=== PATIENT | male | born 1930 | race Hispanic/Latino ===

== ENCOUNTER 2016-10-24 14:47 | Outpatient (RCR) | payer OTHER ==
--- OUTSIDE RECORDS SUMMARY | 2016-10-24 14:50 | XMS REPORT ---
Author Author GRIS ELDER [facility] eClinicalWorks Address Unknown Phone Unavailable Care Team Providers Care Lead Network Engineer Name Role Phone GRIS ELDER CP Unavailable Allergies, Adverse Reactions, Alerts Substance Reaction Event Type N.K.D.A. 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 Active Assessment Essential hypertension I10 Active Problem Essential hypertension I10 Active Problem Prostate cancer C61 Active Medications Medication Code System Code Instructions Start Date End Date Status Dosage Zantac [facility] [address]-06 150 MG Orally twice a day Jul 26, 2016 1 tablet at bedtime Elimarkd [facility] [address]-48 22.5 MG Subcutaneous not defined Metformin HCl [facility] [address]-59 500 MG Orally Twice a day 1 tablet with meals Bicalutamide [facility] [address]-98 50 mg Orally Once a day 1 tablet Amlodipine Besylate [facility] [address]-87 10 mg Orally Once a day Jun 28, 2016 1 tablet Finasteride [facility] [address]-88 5 MG Orally Once a day 1 tablet VESIcare [facility] [address]-37 10 MG Orally Once a day 1 tablet Gabapentin [facility] [address]-39 100 MG Orally 3 times a day Jul 26, 2016 1 tablet Procedures Procedure Coding System Code Date Office Visit, Est Pt., Level 4 CPT-4 87097 Sep 11, 2016 ELECTROCARDIOGRAM, TRACING CPT-4 94071 Sep 11, 2016 GLUCOSE BLOOD TEST CPT-4 78070 Sep 11, 2016 Vital Signs Date/Time: Sep 11, 2016 Cardiac Monitoring Heart Rate 62 bpm Weight 140.0 lbs Height 61 in BMI 26.45 Index Blood Pressure Diastolic 88 mmHg Blood Pressure Systolic 130 mmHg Results Name Result Date Reference Range Unit Abnormality Flag GLUCOSE FINGERSTICK (IN HOUSE) ----GLU FINGERSTICK 133 [id number] ----PC 5 HR [id number] ----Lot # [id number] ----Exp date 20160911 Summary Purpose eClinicalWorks Submission
[2016-10-24 15:12] LABS: BASOPHILS # (AUTO) 0.1 10^3/uL (0.0-0.1); BASOPHILS % (AUTO) 1 % (0-10); EOSINOPHILS # (AUTO) 0.2 10^3/uL (0.0-0.3); EOSINOPHILS % (AUTO) 3 % (0-10); LYMPHOCYTES # (AUTO) 2.3 X 10^3 (1.0-4.0); LYMPHOCYTES % (AUTO) 33 % (12-44); MEAN CORPUSCULAR HEMOGLOBIN 31 PG (25-34); MEAN CORPUSCULAR HGB CONC 35 G/DL (32-36); MEAN CORPUSCULAR VOLUME 88 FL (80-99); MEAN PLATELET VOLUME 9.9 FL (7.4-10.4); MONOCYTES # (AUTO) 0.5 X 10^3 (0.0-1.0); MONOCYTES % (AUTO) 8 % (0-12); NEUTROPHILS # (AUTO) 3.9 X 10^3 (1.8-7.8); NEUTROPHILS % (AUTO) 56 % (42-75); PLATELET COUNT 212 10^3/uL (130-400); RED BLOOD COUNT 4.87 10^6/uL (4.35-5.85); RED CELL DISTRIBUTION WIDTH 13.3 % (10.0-14.5)
[2016-10-24] MEDS ORDERED: LEUPROLIDE 22.5 MG SYRIN(ELIGARD) SQ SCH (15:15)
[2016-10-24 15:43] LABS: BILIRUBIN,TOTAL 0.6 MG/DL (0.1-1.0); CALCIUM 9.3 MG/DL (8.5-10.1); CREATININE SERUM 1.34 MG/DL (0.60-1.30); POTASSIUM 4.5 MMOL/L (3.6-5.0); TOTAL PROTEIN 7.5 G/DL (6.4-8.2)
== END 2017-01-22 | disposition home or self-care (01) ==
LOC: ONC 14:47
PROVIDERS: ATTEND Internal Medicine Hematology & Oncology
DX: C61 Malignant neoplasm of prostate (principal); C79.51 Secondary malignant neoplasm of bone; C78.01 Secondary malignant neoplasm of right lung; C78.02 Secondary malignant neoplasm of left lung; C77.2 Secondary and unspecified malignant neoplasm of intra-abdominal lymph nodes; R73.9 Hyperglycemia, unspecified; N39.45 Continuous leakage; I10 Essential (primary) hypertension; M19.90 Unspecified osteoarthritis, unspecified site; Z79.899 Other long term (current) drug therapy
CPT/HCPCS: 36415; 80053; 84153; 85025; 96402; 99213

== ENCOUNTER 2017-01-30 14:52 | Outpatient (RCR) | payer OTHER ==
--- OUTSIDE RECORDS SUMMARY | 2017-01-23 14:59 | XMS REPORT | Continuity of Care Document ---
Author Author [facility] Organization [facility] Address Unknown Phone Unavailable Care Team Providers Care Academic Affairs Vice President Name Role Phone PCP Unavailable Source Comments Some departments are not documenting in the electronic medical record. If you do not see the information that you expected, contact Release of Information in the Health Information Management department at [phone] for further assistance in locating additional records.[facility] Active Allergies and Adverse Reactions Not on File Current Medications Not on file Active Problems Not on file Social History Tobacco Use Types Packs/Day Years Used Date Never Assessed Plan of Care Date Type Specialty Providers Description 02/12/2017 Appointment Urology Beatrice Finnegan MD [address] [facility] [address] [place] [address] [phone] (Fax) Health Maintenance Due Date Last Done Comments Physical (Comprehensive) 1937 Exam Pertussis Vaccine 1941 Tetanus Vaccine 1947 Shingles Vaccine 1990 Prevnar/Pneumovax (#1) 1995 Influenza Vaccine 07/20/2016 Results from Last 3 Months Not on file
[2017-01-23 15:07] LABS: BASOPHILS # (AUTO) 0.1 10^3/uL (0.0-0.1); BASOPHILS % (AUTO) 1 % (0-10); EOSINOPHILS # (AUTO) 0.2 10^3/uL (0.0-0.3); EOSINOPHILS % (AUTO) 2 % (0-10); LYMPHOCYTES # (AUTO) 3.3 X 10^3 (1.0-4.0); LYMPHOCYTES % (AUTO) 42 % (12-44); MEAN CORPUSCULAR HEMOGLOBIN 30 PG (25-34); MEAN CORPUSCULAR HGB CONC 35 G/DL (32-36); MEAN CORPUSCULAR VOLUME 87 FL (80-99); MEAN PLATELET VOLUME 10.1 FL (7.4-10.4); MONOCYTES # (AUTO) 0.6 X 10^3 (0.0-1.0); MONOCYTES % (AUTO) 7 % (0-12); NEUTROPHILS # (AUTO) 3.8 X 10^3 (1.8-7.8); NEUTROPHILS % (AUTO) 48 % (42-75); PLATELET COUNT 194 10^3/uL (130-400); RED BLOOD COUNT 4.95 10^6/uL (4.35-5.85); RED CELL DISTRIBUTION WIDTH 12.7 % (10.0-14.5); WHITE BLOOD COUNT 7.9 10^3/uL (4.3-11.0)
[2017-01-23 15:31] LABS: ALBUMIN 4.1 G/DL (3.2-4.5); BILIRUBIN,TOTAL 0.5 MG/DL (0.1-1.0); CALCIUM 9.1 MG/DL (8.5-10.1); CREATININE SERUM 1.3 MG/DL (0.60-1.30); POTASSIUM 4.6 MMOL/L (3.6-5.0); TOTAL PROTEIN 7.7 G/DL (6.4-8.2)
--- NOTE | 2017-01-23 19:00 | Diagnostic Imaging Report ---
Pelvis and bilateral hips. INDICATION: Right hip pain. FINDINGS: A single AP view of the pelvis and AP and lateral views of both hips were obtained. There are no previous plain film examinations available for comparison. The bone scan performed on 04/27/2016 failed to show any abnormal uptake in the region of the right hip. On this study, there is no fracture, dislocation, or acute bony abnormality evident. 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 Furthermore, there is a 1.8 x 2.1 cm calcification in the soft tissues superior to the left femoral neck. This finding seems unchanged when compared to the CT abdomen/pelvis exam of 03/24/2016. 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 There is moderate sclerosis of the sacroiliac joint on the right and mild sclerosis on the left. 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 The soft tissues are unremarkable aside from extensive vascular calcifications. IMPRESSION: 1. There is no evidence for an acute bony abnormality. 2. If clinical concern regarding an underlying abnormality persists and further imaging is desired, then MRI will be recommended. Dictated by: Dictated on workstation # [id number]
[~2017-01-30 14:52] MED LIST: LEUPROLIDE 22.5 MG SYRIN(ELIGARD) SQ SCH
== END 2017-04-23 | disposition still patient (30) ==
LOC: ONC 14:52
PROVIDERS: ATTEND Internal Medicine Hematology & Oncology
DX: C61 Malignant neoplasm of prostate (principal); C79.51 Secondary malignant neoplasm of bone; C78.01 Secondary malignant neoplasm of right lung; C78.02 Secondary malignant neoplasm of left lung; C77.2 Secondary and unspecified malignant neoplasm of intra-abdominal lymph nodes; R73.9 Hyperglycemia, unspecified; N39.45 Continuous leakage; I10 Essential (primary) hypertension; E11.9 Type 2 diabetes mellitus without complications; M19.90 Unspecified osteoarthritis, unspecified site; M25.552 Pain in left hip; Z79.899 Other long term (current) drug therapy
CPT/HCPCS: 36415; 73523; 80053; 84153; 85025; 96402; 99213